=== PATIENT | male | born 1955 | race Caucasian/White ===

== ENCOUNTER 2024-04-18 06:22 | Inpatient (IN) | payer BC, OTHER ==
[~2024-04-18] VITALS: Ht 172.7 cm; Wt 102.5 kg
[~2024-04-18 06:22] MED LIST: FURO20TA3 PO; MET25T PO; TAMS0.4C39 PO
--- NOTE | 2024-04-18 07:09 | ECG ---
[facility] Test Date: 2024-04-18 Test Time: 06:39:51 Pat Name: CONCHA MENDOSA Department: ER Room: 0270T Gender: M Roofer [place]: : 1955 Requested By: JOSE CHRISTIANSON Order Number: [id number] Reading MD: Ottoniel Alfredo Measurements Intervals O'Brien Rate: 101 P: 53 DE: 152 QRS: 102 QRSD: 99 T: 29 QT: 339 QTc: 440 Interpretive Statements Sinus tachycardia Ventricular trigeminy Right axis deviation Low voltage, extremity leads Electronically Signed On 04-21-2024 16:29:49 PST by Ottoniel Alfredo Please click the below link to view image of tracing.
[2024-04-18 07:15] VITALS: PULSE 98; RESP 20; O2SAT 96
--- NOTE | 2024-04-18 09:17 | ED.PDOC ---
History of Present Illness HPI Comments 69 year old male transferred from [facility] by EMS presents to the ED with a chief complaint of generalized weakness onset yesterday. Per EMS, patient was transferred due to sepsis and Nstemi. Upon ED arrival HR was 82, O2 sat 98% RA, BP 132/88. PMHx prostatitis, COPD, coronaropathy. Denies chest pain, shortness of breath, headache, abdominal pain, nausea, vomiting, diarrhea. No other symptoms or modifying factors present at this time. Chief Complaint: General Weakness Time Seen by MD: 08:45 Reviewed Notes: Medications, Allergies Allergies: Coded Allergies: NO KNOWN ALLERGIES (Unverified , 04/18/24) Information Source: Patient, Emergency Med Personnel Mode of Arrival: EMS Severity: Moderate Timing: Hours Duration: Since onset Prehospital treatment: None Past Medical History PAST MEDICAL HISTORY: COPD Past Medical History (Other): Prostatitis, coronaropathy Surgical History: Denies all surgeries Family History Family History: Reviewed,noncontributory to illness, No family hx of Cancer, No family hx of DM, No family hx of Heart johnny, No family hx of HTN, No family hx ofKidney johnny, No family hx of Liver johnny, No family hx of Lung johnny, No family hx of Stroke Social History Smoker: Non-Smoker Alcohol: Denies ETOH Use Drugs: Denies Drug Use Lives In: Home Constitutional: reports: weakness; denies: chills, diaphoresis, fatigue, fever, malaise, sweats, others EENTM: denies: blurred vision, double vision, ear bleeding, ear discharge, ear drainage, ear pain, ear ringing, eye pain, eye redness, hearing loss, mouth pain, mouth swelling, nasal discharge, nose bleeding, nose congestion, nose pain, photophobia, tearing, throat pain, throat swelling, voice changes, others Respiratory: denies: cough, hemoptysis, orthopnea, SOB at rest, shortness of breath, SOB with excertion, stridor, wheezing, others Cardiovascular: denies: chest pain, dizzy spells, diaphoresis, Dyspnea on exertion, edema, irregular heart beat, left arm pain, lightheadedness, palpitations, PND, syncope, others Gastrointestinal: denies: abdomen distended, abdominal pain, blood streaked bowels, constipated, diarrhea, dysphagia, difficulty swallowing, hematemesis, melena, nausea, poor appetite, poor fluid intake, rectal bleeding, rectal pain, vomiting, others Genitourinary: denies: burning, dysuria, flank pain, frequency, hematuria, incontinence, penile discharge, penile sore, pain, testicle pain, testicle swelling, urgency, others Neurological: reports: weakness; denies: dizziness, fainting, headache, left sided numbness, left sided weakness, numbness, paresthesia, pre-existing deficit, right sided numbness, right sided weakness, seizure, speech problems, tingling, tremors, others Musculoskeletal: denies: back pain, gout, joint pain, joint swelling, muscle pain, muscle stiffness, neck pain, others Integumetry: denies: bruises, change in color, change in hair/nails, dryness, laceration, lesions, lumps, rash, wounds, others Allergic/Immunocompromised: denies: Difficulty Healing, Frequent Infections, Hives, Itching, others Hematologic/Lymphatic: denies: anemia, blood clots, easy bleeding, easy bruising, swollen glands, others Endocrine: denies: excessive hunger, excessive sweating, excessive thirst, excessive urination, flushing, intolerance to cold, intolerance to heat, unexplained weight gain, unexplained weight loss, others Psychiatric: denies: anxiety, bipolar disorder, depression, hopeless, panic disorder, schizophrenia, sleepless, suicidal, others All Other Systems: Reviewed and Negative Physical Exam General Appearance: Mild Distress, Other (THE PATIENT IS LETHARGIC) HEENT: Other (NO FACIAL ASYMMETRY) Neck: Full Range of Motion, Non-Tender, Normal, Normal Inspection Respiratory: Chest Non-Tender, Crackles, Decreased Breath Sounds, Expiration, Inspiration Cardiovascular: No Edema, No JVD, No Murmur, No Gallop, Normal Peripheral Pulses, Regular Rate/Rhythm Breast Exam: Deferred Gastrointestinal: No Organomegaly, Non Tender, No Pulsatile Mass, Normal Bowel Sounds, Soft Genitalia: Deferred Pelvic: Deferred Rectal: Deferred Extremities: Decreased range of motion, Inflammation, Leg edema, Pedal edema, Swelling, Tender, Other (VENOUS STASIS DERMATITIS TO BOTH LEGS THE RIGHT LEG HAS ALSO CELLULITIS ALSO THE THE TOES HAVE SOME SIGNS OF GANGRENOUS ACTIVITY) Neurologic: Alert, Depressed Affect, Motor Weakness Cerebellar Function: NOT DONE Reflexes: NOT DONE Skin: Bruises, Dry, Wounds Peripheral Pulses: 1+ carotid (R), 1+ carotid (L) Lymphatic: No Adenopathy Was a procedure done? Was a procedure done?: No EKG EKG : Pulse Rate (adult): 110 [place]: RAD Cardiac Rhythm: ST, PVC's Differential Dx Considerations may include: ALTERED LEVEL OF CONSCIOUSNESS WITH CEREBRAL MASS INFARCTION SEPSIS UTI CE LLULITIS GENERALIZED WEAKNESS PULMONARY EMBOLUS COPD PNEUMONIA RHABDOMYOLYSIS LIVER FAILURE RENAL FAILURE PANCREATITIS X-Ray, Labs, Meds, VS Vital Signs Date Time Temp Pulse Resp B/P (MAP) Pulse Ox O2 Delivery O2 Flow Rate FiO2 04/18/24 16:00 85 04/18/24 15:33 110 04/18/24 14:30 87 19 125/81 (96) 96 04/18/24 12:00 96 04/18/24 12:00 102 22 110/61 (77) 97 04/18/24 09:30 97 22 117/78 (91) 97 04/18/24 08:30 97 22 117/58 (77) 97 04/18/24 08:00 101 04/18/24 07:15 98 20 96 Nasal Cannula* 3 32 04/18/24 07:15 100.0 98 20 117/58 (77) 96 100.0 04/18/24 06:39 101 04/18/24 06:22 98.9 82 16 132/88 (103) 98 Lab Test 04/18/24 16:20 04/18/24 14:54 Range/Units Influenza Type A Antigen Negative Negative Influenza Type B Antigen Negative Negative SARS-CoV-2 Antigen (Rapid) Negative NEGATIVE White Blood Count 14.0 H 4.4-10.8 10^3/uL Red Blood Count 3.69 L 4.5-5.90 10^6/uL Hemoglobin 11.2 L 13.5-17.5 g/dL Hematocrit 34.3 L 41.0-53.0 % Mean Corpuscular Volume 92.8 80.0-100.0 fL Mean Corpuscular Hemoglobin 30.3 28.0-32.0 pg Mean Corpuscular Hemoglobin Concent 32.7 32.0-36.0 g/dL Red Cell Distribution Width 17.2 H 11.8-14.3 % Platelet Count 279 140-450 10^3/uL Mean Platelet Volume 7.2 6.9-10.8 fL Neutrophils (%) (Auto) 91.9 H 37.0-80.0 % Lymphocytes (%) (Auto) 2.6 L 10.0-50.0 % Monocytes (%) (Auto) 5.2 0.0-12.0 % Eosinophils (%) (Auto) 0.0 0.0-7.0 % Basophils (%) (Auto) 0.3 0.0-2.0 % Neutrophils # (Auto) 12.8 H 1.6-8.6 10 ^3/uL Lymphocytes # (Auto) 0.4 0.4-5.4 10 ^3/uL Monocytes # (Auto) 0.7 0-1.3 10 ^3/uL Eosinophils # (Auto) 0 0-0.8 10 ^3/uL Basophils # (Auto) 0 0-0.2 10 ^3/uL Nucleated Red Blood Cells 0.0 % Sodium Level 137 136-145 mmol/L Potassium Level 4.4 3.5-5.1 mmol/L Chloride Level 107 98-107 mmol/L Carbon Dioxide Level 25 20-31 mmol/L Anion Gap 5 5-15 Blood Urea Nitrogen 29 H 9-23 mg/dL Creatinine 1.07 0.700-1.30 mg/dL Glomerular Filtration Rate Calc 75 >90 mL/min BUN/Creatinine Ratio 27.1 H 10.0-20.0 Serum Glucose 99 74-106 mg/dL Hemoglobin A1c Pending Calcium Level 8.5 L 8.7-10.4 mg/dL Magnesium Level 1.7 1.6-2.6 mg/dL Total Bilirubin 0.3 0.2-1.0 mg/dL Aspartate Amino Transferase (AST) 84 H 13-40 U/L Alanine Aminotransferase (ALT) 26 7-40 U/L Alkaline Phosphatase 117 H 46-116 U/L Troponin I High Sensitivity 1563 *H </=54 ng/L B-Type Natriuretic Peptide 555.48 0-100 pg/mL Total Protein 5.3 L 5.7-8.2 g/dL Albumin 3.0 L 3.2-4.8 g/dL Triglycerides Level 107 < 150 mg/dL Cholesterol Level 129 < 200 mg/dL LDL Cholesterol 65 < 100 mg/dL HDL Cholesterol 36 L 40-59 mg/dL Thyroid Stimulating Hormone (TSH) 0.46 L 0.55-4.78 uIU/mL Current Medications Medications (Trade) Dose Ordered Sig/Shashank Route Start Time Stop Time Status Last Admin Enoxaparin Sodium (Lovenox) 60 mg ONCE ONCE SC 04/18/24 15:45 04/18/24 15:46 DC 04/18/24 16:01 Aspirin 162 mg ONCE ONCE PO 04/18/24 15:45 04/18/24 15:46 DC 04/18/24 16:01 X-Ray, Labs, Meds, VS Comment COURSE IN THE EMERGENCY DEPARTMENT EVENTFUL PATIENT HAD A FULL WORKUP AT [facility] TO BE REFERRED TO THE COMPLETE LAB WORKUP INCLUDED EKG THE CHEST X-RAY CT CHEST CT ANGIO PATIENT WILL BE ADMITTED FOR FURTHER CARE HE WAS ALREADY TREATED FOR SEPSIS AND UTI THE PULMONARY EMBOLUS MORE WAS RULED OUT PATIENT WILL BE ADMITTED FOR FURTHER CARE CONSULTATION WITH ELEVATOR [employer]STRUCTOR SUPERVISOR PATIENT WILL BE ADMITTED UNDER DR. VELAZQUEZ SERVICE SPEND 30-45 MINUTES REVIEWING THE CHART AND SEEN THE PATIENT Time of 1ST Reevaluation: 09:15 Reevaluation 1ST: Unchanged Time of 2ND Reevaluation: 15:16 Reevaluation 2ND: Improved Patient Education/Counseling: Diagnosis, Treatment, Prognosis Family Education/Counseling: Diagnosis, Treatment, Prognosis, No Family Present Additional Information The following tests were ordered, and results were reviewed by me: EKG -x2, CBC, CMP, UA, MAGNESIUM Additional Information was gathered from interviewing the following independent historians: EMS I discussed treatment and results with medical personnel and patient Departure 1 Departure Time of Disposition: 15:19 Impression: Primary Impression: Sepsis Qualified Codes: A41.9 - Sepsis, unspecified organism Additional Impressions: Lethargy Cellulitis of right leg Elevated troponin Multiple falls COPD (chronic obstructive pulmonary disease) Qualified Codes: J43.2 - Centrilobular emphysema Rhabdomyolysis Qualified Codes: M62.82 - Rhabdomyolysis Marijuana user Methamphetamine abuse Non-STEMI (non-ST elevated myocardial infarction) Ruled Out: Pulmonary embolism Disposition: ADMITTED INPATIENT Admit to: [facility] Condition: Critical Critical Care Note Critical Care Time?: Yes (45 min-critical care time only) Stability Stability form required: Yes Unstable for transfer: Telemetry monitoring (Telemetry monitoring required), Requires medication (Requires Med for stabilization) Heart Score Heart Score: Heart Score Response (Comments) Value History Moderate Suspicious 1 EKG Repolarization Disturb 1 Age >65 2 Risk Factors >3 or Hx ASHD 2 Troponin >3 x's Normal limit 2 Total 8 I personally scribed for JOSE CHRISTIANSON MD ([email or web address]) on 04/18/24 at 09:17. Electronically submitted by Marla Jones ([email or web address]). I personally scribed for JOSE CHRISTIANSON MD ([email or web address]) on 04/18/24 at 15:34. Electronically submitted by Marla Jones [email or web address]). JOSE CHRISTIANSON MD Apr 18, 2024 09:17
[2024-04-18] MEDS: SODIUM CHLORIDE 0.9% 500 ML IV ONE (15:01)
[2024-04-18] MEDS: SODIUM CHLORIDE 0.9% 1,000 ML IV ONE ×2 (15:02→15:48)
[2024-04-18 15:07] LABS: Basophils # (auto) 0 10 ^3/uL (0-0.2); Basophils % (auto) 0.3 % (0.0-2.0); Eosinophils # (auto) 0 10 ^3/uL (0-0.8); Hematocrit 34.3 % (41.0-53.0); Hemoglobin 11.2 g/dL (13.5-17.5); Lymphocytes # (auto) 0.4 10 ^3/uL (0.4-5.4); Lymphocytes % (auto) 2.6 % (10.0-50.0); Mean Corpuscular Hemoglobin 30.3 pg (28.0-32.0); Mean Corpuscular Hgb Conc. 32.7 g/dL (32.0-36.0); Mean Corpuscular Volume 92.8 fL (80.0-100.0); Monocytes # (auto) 0.7 10 ^3/uL (0-1.3); Monocytes % (auto) 5.2 % (0.0-12.0); Neutrophils # (auto) 12.8 10 ^3/uL (1.6-8.6); Neutrophils % (auto) 91.9 % (37.0-80.0); Platelet Count (auto) 279 10^3/uL (140-450); Red Blood Cells 3.69 10^6/uL (4.5-5.90); Red Cell Distribution Width 17.2 % (11.8-14.3)
[2024-04-18 15:22] LABS: Alanine Aminotransferase 26 U/L (7-40); Anion Gap 5 (5-15); BUN/Creatinine Ratio 27.1 (10.0-20.0); Bilirubin, Total 0.3 mg/dL (0.2-1.0); Carbon Dioxide 25 mmol/L (20-31); Chloride 107 mmol/L (98-107); Glucose 99 mg/dL (74-106); Magnesium 1.7 mg/dL (1.6-2.6); Potassium 4.4 mmol/L (3.5-5.1); Sodium 137 mmol/L (136-145)
[2024-04-18 15:24] LABS: Alkaline Phosphatase 117 U/L (46-116); Aspartate Aminotransferase 84 U/L (13-40); Blood Urea Nitrogen 29 mg/dL (9-23); Calcium 8.5 mg/dL (8.7-10.4); Total Protein 5.3 g/dL (5.7-8.2)
[2024-04-18] MEDS: SODIUM CHLORIDE 0.9% 1,000 ML IVB ONE (15:48)
[2024-04-18] MEDS: ASPirin 81 mg TAB PO ONE (16:01)
[2024-04-18] MEDS: ENOXAPARIN SOD 100 MG/1 ML SYRINGE SC ONE (16:01)
[2024-04-18 16:57] LABS: Triglycerides 107 mg/dL (< 150)
[2024-04-18 16:58] LABS: LDL Cholesterol 65 mg/dL (< 100)
[2024-04-18 16:59] LABS: Cholesterol 129 mg/dL (< 200)
[2024-04-18] MEDS ORDERED: VANCOMYCIN PER PHARMACY 0 MG IV SCH (17:00)
[2024-04-18] MEDS ORDERED: MORPHINE SULFATE INJ 2 MG/ml SYRG IV PRN (17:00)
[2024-04-18] MEDS: SODIUM CHLORIDE 0.9% 1,000 ML IV SCH (17:00)
[2024-04-18] MEDS ORDERED: NITROGLYCERIN 0.4 MG SL TAB SL PRN (17:00)
[2024-04-18 17:16] LABS: Rapid Influenza A Negative (Negative); Rapid Influenza B Negative (Negative)
[2024-04-18 17:17] LABS: COVID19 ANTIGEN SOFIA FIA NEGATIVE (NEGATIVE)
[2024-04-18 17:18] LABS: HDL Cholesterol 36 mg/dL (40-59)
--- NOTE | 2024-04-18 17:34 | DVH ---
AP portable chest REASON FOR EXAM: Cough with phlegm INDICATION: Cough with phlegm FINDINGS: Heart size is enlarged. Prominent bronchovascular markings in both lower lung zones, right greater than left IMPRESSION: 1. Cardiomegaly. Lung findings could either represent mild pulmonary edema or bibasilar infiltrates
[2024-04-18] MEDS: MAGNESIUM SULFATE 1GM/100ML 100 ML IV ONE (18:11)
[2024-04-18] MEDS: PIPERACILLIN-TAZOB 3.375GM 100 ML IV SCH (18:11)
[2024-04-18 18:23] LABS: Basophils # (auto) 0.1 10 ^3/uL (0-0.2); Basophils % (auto) 0.4 % (0.0-2.0); Eosinophils # (auto) 0 10 ^3/uL (0-0.8); Hemoglobin 10.4 g/dL (13.5-17.5); Lymphocytes # (auto) 0.4 10 ^3/uL (0.4-5.4); Lymphocytes % (auto) 2.6 % (10.0-50.0); Mean Corpuscular Hemoglobin 30.3 pg (28.0-32.0); Mean Corpuscular Hgb Conc. 32.7 g/dL (32.0-36.0); Mean Corpuscular Volume 92.5 fL (80.0-100.0); Monocytes # (auto) 0.6 10 ^3/uL (0-1.3); Monocytes % (auto) 4.7 % (0.0-12.0); Neutrophils # (auto) 12.7 10 ^3/uL (1.6-8.6); Neutrophils % (auto) 92.3 % (37.0-80.0); Platelet Count (auto) 263 10^3/uL (140-450); Red Blood Cells 3.45 10^6/uL (4.5-5.90); Red Cell Distribution Width 17.4 % (11.8-14.3); White Blood Cell 13.7 10^3/uL (4.4-10.8)
[2024-04-18] MEDS: HYDROcodone-ACET 5/325MG TAB PO PRN (18:28)
[2024-04-18 18:38] LABS: Urine Bacteria None Seen /hpf (None Seen)
[2024-04-18 19:00] VITALS: PULSE 89; RESP 20
--- NOTE | 2024-04-18 19:12 | DVHSR ---
APPROVED REPORT EXAM: Two-dimensional and M-mode echocardiogram with Doppler and color Doppler. Blood Pressure: 110/61 mmHg INDICATION NSTEMI RISK FACTORS Height: 5'8", Weight: 209 DIMENSIONS LVDd4.6 (3.8-5.7cm)LA (2D)5.2 (1.9-4.0cm)Aortic Root4.1 (2.0-3.7cm) LVDs2.9 (2.5-4.0cm)LA (MM) (1.9-4.0cm)Aortic Cusp Exc1.8 (1.5-2.0cm) EF (%) 66.0 (55-70%)Rt. Atrium5.9 (1.9-4.0cm)Asc. Aorta cm IVSd1.2 (0.7-1.1cm)RV (D)6.3 (1.8-2.4cm) PWd1.2 (0.7-1.1cm) Mitral Valve MitralMitral Stenosis E wave0.96m/sMV Mean GR.mmHg A wave1.00m/sMV Peak GR.mmHg E/A ratio1.02D MVAcm2 DECEL [id number] 1/2 Timems Aortic Valve Aortic ValveAortic Stenosis V11.02m/Mitchel Mean GR.3mmHg V21.28m/Mitchel Peak GR.7mmHg LVOT Diameter2.3 (1.8-2.4cm)Doppler AVA3.31cm2 Pulmonic Valve V20.87m/s Tricuspid Valve TR Velocity3.43m/s [id number] LEFT VENTRICLE The left ventricle is normal size. There is mildconcentric left ventricular hypertrophy. Left ventricle systolic function is normal. The Ejection Fraction is 60-65%. Flattening of the interventricular septum during systole suggestive of right sided pressure overload. RIGHT VENTRICLE The right ventricle is severely dilated. The right ventricular systolic function is normal. ATRIA The left atrium is moderately dilated. The right atrium is severely dilated. Not well visualized. MITRAL VALVE The mitral valve is normal in structure and function. PULMONIC VALVE Likely normal. TRICUSPID VALVE The tricuspid valve is normal in structure and function. There is mild tricuspid regurgitation. Right ventricular systolic pressure is estimated at 55-60 mmHg. AORTIC VALVE Normal structure and function. GREAT VESSELS Aortic root measures 4.1 cm at level of sinuses of valsalva. PERICARDIAL EFFUSION No significant pericardial effusion. IVC not visualized. Other Information Quality : LimitedRhythm : Technically limited study due to body habitus, patient position. Conclusion Severely dilated right ventricle with preserved systolic funciton. The left ventricle is normal size and systolic function. Flattening of the interventricular septum during systole suggestive of right sided pressure overload. Severely dilated right atrium. Right ventricular systolic pressure is estimated at 55-60 mmHg. Mild left ventricular hypertrophy. No hemodynamically significant valvular disease. No prior study for comparison.
[2024-04-18 19:13] LABS: Urine Blood 3+ /uL (Negative); Urine Clarity Ex.Turbid (Clear); Urine Color Colorless (Yellow); Urine Protein, UAD 1+ (Negative); Urine Specific Gravity 1.034 (1.001-1.035); Urine Squamous Epithelial Cell None Seen /hpf (<5); Urine Urobilinogen Normal (Negative); Urine WBC 2485 /hpf (0 - 3); Urine WBC Clumps PRESENT /hpf (None Seen)
--- NOTE | 2024-04-18 19:23 | DVHINCON2 ---
Date Seen: Apr 18, [address] Nix Reason for Consultation Non ST-elevation NM History of Present Illness 69-year-old gentleman who lives alone was referred to the hospital by his neighbor who found him somewhat confused and mentally altered. He went to [facility]. Given troponin elevation with a history of edema of the lower extremities he was transferred to [facility] for further evaluation and treatment. He was found to have significant generalized weakness. Possible sepsis. Patient is better oriented but still somewhat disoriented. Past Medical History His past medical history significant for prostatitis chronic obstructive lung disease. He states he was previously being followed by for his cardiac problems. He can not specify what problem he has had however. He denies any chest pain but he admits to being significantly weak and progressivel y short of breath. He has had swelling in his lower extremities. He was told that this may be symptoms of congestive heart failure. No previous surgeries. Past Surgical History No previous surgeries. Social History He states he does not drink or smoke. He is single. Has a daughter that he has not seen in over 50 years. He has a brother and nephew who is. He lives alone Allergies: Coded Allergies: NO KNOWN ALLERGIES (Unverified , 04/18/24) Current Medications Current Medications Medications (Trade) Dose Ordered Sig/Shashank Route PRN Reason Start Time Stop Time Status Last Admin Sodium Chloride 1,000 ml @ 120 mls/hr Q8H20M IV 04/18/24 17:00 Acetaminophen/ Hydrocodone Bitart ([place] 5/325MG Tab) 1 tab Q4HP PRN PO MODERATE PAIN (4-6 PAIN SCALE) 04/18/24 17:00 04/18/24 18:28 Ondansetron HCl (Zofran) 4 mg Q4HP PRN IV NAUSEA / VOMITING 04/18/24 17:00 Acetaminophen (Tylenol Tablet) 650 mg Q6HP PRN PO PAIN SCALE 1-3 OR TEMP>100.4 04/18/24 17:00 Morphine Sulfate 2 mg Q4HPRN PRN IV SEVERE PAIN (7-10 PAIN SCALE) 04/18/24 17:00 Nitroglycerin (Ntrostat Sublingual) 0.4 mg Q5MINP PRN SL FOR CHEST PAIN 04/18/24 17:00 Morphine Sulfate 2 mg Q30M PRN IV FOR CHEST PAIN 04/18/24 17:00 Vancomycin HCl 0 ml @ 0 mls/hr UD IV 04/18/24 17:00 Piperacillin Sod/ Tazobactam Sod 100 ml @ 25 mls/hr Q8H IV 04/18/24 18:00 04/18/24 18:11 Heparin Sodium/ Dextrose 250 ml @ 10 mls/hr Q24H IV 04/19/24 02:00 Review of Systems Review of systems is difficult to obtained. He denies any fevers chills or weight loss. Denies any cardiac respiratory or neurologic impairment. Denies any GI or musculoskeletal disorders other than edema of his lower extremities and progressive weakness. Hematological oncological endocrinologic negative. Psychiatrically negative. Vital Signs Vital Signs Date Time Temp Pulse Resp B/P (MAP) Pulse Ox O2 Delivery O2 Flow Rate FiO2 04/18/24 18:00 87 13 106/53 (70) 87 04/18/24 07:15 Nasal Cannula* 3 32 04/18/24 07:15 100.0 100.0 Physical Exam Patient is lying in bed. Vital signs are noted. He appears unkept but responds to questions. HEENT examination reveals an atraumatic and normocephalic skull. Pupils were equally reactive orally poorly hydrated. Trachea central neck is supple. No jugular distention no bruits. Coarse rhonchi bilaterally. Heart exam reveals an irregular S1-S2. Frequent heart sounds notable secondary to PVCs. 1/6 systolic ejection murmur. Abdominal examination is unremarkable. Bowel sounds are normoactive. Extremities show adequate pulses at the femorals. Popliteals are present. Dorsalis pedis and pedal are not palpable. Notable edema and [id number] cellulitis in his distal tibial and ankles bilaterally. There appears to be more cellulitis on the right. Neurologically he appears to be nonfocal. Integumentary as noted above with cellulitis in his distal extremities. Labs/Diagnostic Data Labs Test 04/18/24 18:00 04/18/24 17:30 04/18/24 16:20 04/18/24 14:54 Range/Units Influenza Type A Antigen Negative Negative Influenza Type B Antigen Negative Negative SARS-CoV-2 Antigen (Rapid) Negative NEGATIVE Eosinophils (%) (Auto) 0.0 0.0-7.0 % Eosinophils # (Auto) 0 0-0.8 10 ^3/uL Basophils # (Auto) 0 0-0.2 10 ^3/uL Nucleated Red Blood Cells 0.0 % Sodium Level 137 136-145 mmol/L Potassium Level 4.4 3.5-5.1 mmol/L Chloride Level 107 98-107 mmol/L Carbon Dioxide Level 25 20-31 mmol/L Anion Gap 5 5-15 Blood Urea Nitrogen 29 H 9-23 mg/dL Creatinine 1.07 0.700-1.30 mg/dL Glomerular Filtration Rate Calc 75 >90 mL/min BUN/Creatinine Ratio 27.1 H 10.0-20.0 Serum Glucose 99 74-106 mg/dL Hemoglobin A1c 5.7 <5.7 % A1C Calcium Level 8.5 L 8.7-10.4 mg/dL Magnesium Level 1.7 1.6-2.6 mg/dL Total Bilirubin 0.3 0.2-1.0 mg/dL Aspartate Amino Transferase (AST) 84 H 13-40 U/L Alanine Aminotransferase (ALT) 26 7-40 U/L Alkaline Phosphatase 117 H 46-116 U/L Troponin I High Sensitivity 1563 *H </=54 ng/L B-Type Natriuretic Peptide 555.48 0-100 pg/mL Total Protein 5.3 L 5.7-8.2 g/dL Albumin 3.0 L 3.2-4.8 g/dL Triglycerides Level 107 < 150 mg/dL Cholesterol Level 129 < 200 mg/dL LDL Cholesterol 65 < 100 mg/dL HDL Cholesterol 36 L 40-59 mg/dL Thyroid Stimulating Hormone (TSH) 0.46 L 0.55-4.78 uIU/mL EKG shows a sinus rhythm with nonspecific ST segment changes. EKG is reviewed from [facility] show nonspecific changes. No acute injury pattern noted Preliminary echocardiographic findings suggest normal left ventricular function. Enlarged left atrium. No significant valvulopathy noted. Ejection fraction appears to be better than 55%. The right ventricle appears to be mildly dilated. Assessment Elevated white count probably secondary to cellulitis. Rule out vascular insufficiency of the lower extremities. Associated elevated troponins suggest demand ischemia given unremarkable EKG. History of hypertension. Plan/Recommendation Continuing with IV antibiotics. Slow hydration as necessary. Venous and arterial Doppler of the lower extremities. Monitor troponins and BNP levels as well as lactic acid levels. Serial EKGs and troponin levels as mentioned. Plan discussed with: Patient NYHA Physical activity limitations: Class4(Severe)discomfort Date of Service: Apr 18, 2024 Billing Provider: MIRANDA OLVERA Sr., MD Cardiology Common Codes: 06604-[id number] INP/OBS CARE (High) MIRANDA OLVERA Sr., MD Apr 18, 2024 19:23
--- NOTE | 2024-04-18 19:50 | DVHHP2 ---
Admitting Diagnosis: NSTEMI, Sepsis , bilateral lower extremity cellulitis, UTI History of Present Illness History Source: Patient Exam Limitations: No limitations HPI Mr. Julius Doshi is a 69 year old male transferred from [facility] by EMS presents with a chief complaint of generalized weakness onset yesterday. Patient was transferred due to sepsis and Nstemi. Patient reports he was found unresponsive by his neighbor who called 911 and he was found to have elevated troponin levels at [facility] and cellulitis of bilateral lower extremities. Patient denies any chest pain, dizziness, headaches, blurry vision, nausea, vomiting, dyspnea, dysuria, hematuria. Patient endorses bilateral lower extremity pain. Patient admitted for further evaluation. Past Medical History Cardiac: No pertinent Hx Pulmonary: COPD Central Nervous System: No pertinent Hx GI: No pertinent Hx Hemotology/Oncology: No pertinent Hx Hepatobiliary: No pertinent Hx Psychiatric: No pertinent Hx Musculoskeletal: No pertinent Hx Rheumotologic: No pertinent Hx Infectious Disease: No peritnent Hx ENT: No pertinent Hx Renal/: Other (Prostatis ) Endocrine: No pertinent Hx Dermatology: No pertinent Hx Smoker: No Hx (Negative) Alocohol: None Drugs: None Domestic Violence: Neg Review of Systems Constitutional: No symptom reported Ears, Nose, & Throat: No symptom reported Eyes: No symptom reported Pulmonary/Respiratory: No symptom reported Cardiovascular: No symptom reported Gastrointestinal: No symptom reported Genitourinary: No symptom reported Musculoskeletal: Leg pain (bilateral lower extremity swelling and pain. ) Skin: No symptom reported Psychiatric: No symptom reported Endocrine: No symptom reported Hemotologic/Lymphatic: No symptom reported H&P Exam Vital Signs Vital Signs Date Time Temp Pulse Resp B/P (MAP) Pulse Ox O2 Delivery O2 Flow Rate FiO2 04/18/24 18:00 87 13 106/53 (70) 87 04/18/24 07:15 Nasal Cannula* 3 32 04/18/24 07:15 100.0 100.0 General Appeara: Well developed, Well nourished Head Exam: Normal inspection Neck Exam: Normal inspection, Non-tender, Normal alignment Eye Exam: bilateral eye Normal inspection, bilateral eye PERRL, bilateral eye EOMI Ear Exam: bilateral ear Auricle normal, bilateral ear Canal normal Nasal Exam: Normal inspection Mouth: Normal Inspection Pulmonary/Respiratory: Normal inspection, Normal breath sounds, Chest non- tender Cardiovascular/Chest: Normal inspection, Edema (bilateral lower extremity), Regular rate, Normal Rhythm Peripheral Pulses: 2+ dorsalis pedis (R), 2+ dorsalis pedis (L), 2+ Radial (R), 2+ Radial (L) Abdominal Exam: Normal bowel sounds, Soft, No tenderness Rectal Exam: Deferred Male Genital Exam: Not done Legs: bilateral leg pain, bilateral leg soft tissue tenderness, bilateral leg swelling Tendon/ Neuro: Normal sensation, Normal motor function MANAGER SPEECH Exam: Normal hearing, Normal speech, PERRL Motor/Sensory: Normal sensory function, Normal motor function Neuro/Mental St: Alert, Oriented Appearance: Appropriate insight, Disheveled Eye contact/ Speech: Cooperative, Good eye contact, Normal speech Thoughts/Psych: Normal thought pattern Skin Exam: Normal inspection, Warm/dry, Other (bilateral lower extremity erythema with scabs ) Labs/Xrays Labs Test 04/18/24 18:00 04/18/24 17:30 04/18/24 16:20 04/18/24 14:54 Range/Units Urine Color Colorless Yellow Urine Clarity Ex.turbid Clear Urine pH 6.0 5.0-9.0 Urine Specific [place] 1.034 1.001-1.035 Urine Protein 1+ H Negative Urine Ketones Negative Negative Urine Blood 3+ H Negative /uL Urine Nitrite Negative Negative Urine Bilirubin Negative Negative Urine Urobilinogen Normal Negative mg/dL Urine Leukocyte Esterase 3+ Negative /uL Urine RBC 35 0 - 3 /hpf Urine WBC 2485 0 - 3 /hpf Urine WBC Clumps Present None Seen /hpf Urine Squamous Epithelial Cells None seen <5 /hpf Urine Bacteria None seen None Seen /hpf Urine Glucose Normal Normal mg/dL White Blood Count 13.7 H 4.4-10.8 10^3/uL Red Blood Count 3.45 L 4.5-5.90 10^6/uL Hemoglobin 10.4 L 13.5-17.5 g/dL Hematocrit 32.0 L 41.0-53.0 % Mean Corpuscular Volume 92.5 80.0-100.0 fL Mean Corpuscular Hemoglobin 30.3 28.0-32.0 pg Mean Corpuscular Hemoglobin Concent 32.7 32.0-36.0 g/dL Red Cell Distribution Width 17.4 H 11.8-14.3 % Platelet Count 263 140-450 10^3/uL Mean Platelet Volume 7.4 6.9-10.8 fL Neutrophils (%) (Auto) 92.3 H 37.0-80.0 % Lymphocytes (%) (Auto) 2.6 L 10.0-50.0 % Monocytes (%) (Auto) 4.7 0.0-12.0 % Eosinophils (%) (Auto) 0.0 0.0-7.0 % Basophils (%) (Auto) 0.4 0.0-2.0 % Neutrophils # (Auto) 12.7 H 1.6-8.6 10 ^3/uL Lymphocytes # (Auto) 0.4 0.4-5.4 10 ^3/uL Monocytes # (Auto) 0.6 0-1.3 10 ^3/uL Eosinophils # (Auto) 0 0-0.8 10 ^3/uL Basophils # (Auto) 0.1 0-0.2 10 ^3/uL Nucleated Red Blood Cells 0.0 % Influenza Type A Antigen Negative Negative Influenza Type B Antigen Negative Negative SARS-CoV-2 Antigen (Rapid) Negative NEGATIVE Sodium Level 137 136-145 mmol/L Potassium Level 4.4 3.5-5.1 mmol/L Chloride Level 107 98-107 mmol/L Carbon Dioxide Level 25 20-31 mmol/L Anion Gap 5 5-15 Blood Urea Nitrogen 29 H 9-23 mg/dL Creatinine 1.07 0.700-1.30 mg/dL Glomerular Filtration Rate Calc 75 >90 mL/min BUN/Creatinine Ratio 27.1 H 10.0-20.0 Serum Glucose 99 74-106 mg/dL Hemoglobin A1c 5.7 <5.7 % A1C Calcium Level 8.5 L 8.7-10.4 mg/dL Magnesium Level 1.7 1.6-2.6 mg/dL Total Bilirubin 0.3 0.2-1.0 mg/dL Aspartate Amino Transferase (AST) 84 H 13-40 U/L Alanine Aminotransferase (ALT) 26 7-40 U/L Alkaline Phosphatase 117 H 46-116 U/L Troponin I High Sensitivity 1563 *H </=54 ng/L B-Type Natriuretic Peptide 555.48 0-100 pg/mL Total Protein 5.3 L 5.7-8.2 g/dL Albumin 3.0 L 3.2-4.8 g/dL Triglycerides Level 107 < 150 mg/dL Cholesterol Level 129 < 200 mg/dL LDL Cholesterol 65 < 100 mg/dL HDL Cholesterol 36 L 40-59 mg/dL Thyroid Stimulating Hormone (TSH) 0.46 L 0.55-4.78 uIU/mL Assessment/Plan Problem List: (1) Non-STEMI (non-ST elevated myocardial infarction) (2) Sepsis (3) UTI (urinary tract infection) (4) Cellulitis Plan 69 yo male transfer from [facility] with known history of Prostatitis , COPD presents with NSTEMI, sepsis. 1. NSTEMI 2. Sepsis 3. Bilateral lower extremity cellulitis 4. UTI Plan Admit [facility] Cardiology consultation, serial troponin levels, Heparin drip per [facility] protocol Infectious disease consultation, IV antibiotics Zosyn, Vancomycin Blood cultures x2 Urine culture Discussed all above with patient who verbalizes agreement and understanding of care plan. All questions were answered. Discussed care plan with patient nurse Mati ALANIS. Discussed assessment and care plan with supervising/admitting MD Dr. Velazquez. Plan discussed with: Patient, Other Code Visit Code Visit Total Time (mins): 45 Additional Comments Additional Comments Additional Comments 69-year-old male with a known history of COPD with previous history of tobacco use disorder presented to the hospital with shortness breath found to have 1. Acute hypoxic respiratory failure 2. Acute COPD exacerbation 3. Sepsis with suspected secondary to bilateral lower extremity cellulitis 4. NSTEMI versus demand ischemia 5. Bilateral lower extremity cellulitis -continue broad-spectrum IV antibiotics follow up blood cultures, continue heparin drip follow up Cardiology recommendations ZULAY CANO Apr 18, 2024 19:50 JAM VELAZQUEZ MD Apr 19, 2024 14:51
[2024-04-18 20:21] LABS: INR 1.15 (0.9-1.15); Partial Thromboplastin Time 35.6 SEC (24.5-34.5)
[2024-04-18] MEDS: VANCOMYCIN 1.75GM/350ML 350 ML IV ONE (20:25)
[2024-04-18] MEDS: IOHEXOL 350 MG/ML 100ML IJ ONE (20:26)
[2024-04-18 21:00] VITALS: BP 104/62; PULSE 79; RESP 20; TEMP 98.8; O2SAT 98
--- NOTE | 2024-04-18 21:49 | DVH ---
INDICATION: sob COMPARISON: None TECHNIQUE: Multidetector CTA of the chest was performed of the chest with 100 cc of intravenous contr ast. PULMONARY ANGIOGRAPHY PROTOCOL was utilized using a bolus-tracking technique centered on the micah n pulmonary artery. Axial, coronal and sagittal multiplanar and MIP reformats were performed. Sagittal and coronal MIP images were reconstructed and submitted for interpretation. Radiation Dose Information: CT Dose: CTDI volume is 35.52 mGy. Dose-length product is 1199.85 mGy*cm Omnipaque 350: 100 mL The dose indicators for CT are the volume Computed Tomography (CT) Dose Index (CTDIvol) and the Dose Length Product (DLP), and are measured in units of mGy and mGy-cm, respectively. These indicators are not patient dose, but values generated from the CT scanner acquisition factors. The report includes radiation exposure data for exposures received during this examination. Findings: Pulmonary artery: Normal caliber of the pulmonary artery. No large central or large segmental pulmo nary embolism. Lower neck: Normal thyroid. Lungs: No focal consolidation, pulmonary mass, or suspicious pulmonary nodule. Heart/Vascular Structures: Normal heart size. Normal caliber and enhancement of the aorta. Lymph Nodes: No adenopathy Pleura: Small bilateral pleural effusions. No significant pneumothorax. Musculoskeletal: No acute osseous abnormality. Upper abdomen: Large hiatal hernia extending to the mayra or intrathoracic stomach or esophageal mass. Correlate clinically or with medical or surgical history.. IMPRESSION: 1. No pulmonary embolism. 2. No findings of pulmonary artery hypertension. 3. Large hiatal hernia or intrathoracic stomach. Correlate with medical and surgical history. 4. Small bilateral pleural effusions.
[2024-04-19] VITALS (9 sets, daily range): PULSE 68–86; RESP 14–28; O2SAT 94–100
[2024-04-19] MEDS: IPRATROPIUM BROM 0.5 MG/2.5ML INH SOL NEB SCH ×2 (00:55→18:51)
[2024-04-19] MEDS: ALBUTEROL SULF 2.5 MG/0.5ML(0.5%) NEB SOLN NEB PRN (00:55)
[2024-04-19] MEDS: HEPARIN DRIP/D5W 100UNITS/ML 250 ML IV SCH ×3 (02:03→16:32)
[2024-04-19] MEDS: ALBUMIN 25% 50 ML IV ONE (03:33)
--- NOTE | 2024-04-19 04:43 | DVH ---
Bilateral lower extremity venous duplex Clinical History: edema Comparison: None Findings: Duplex Doppler evaluation of the deep venous systems of both lower extremities from the common femora l veins to the popliteal veins including color Doppler and spectral/pulsed waveform analysis was perf ormed. RIGHT SIDE: The common femoral vein demonstrates appropriate compressibility and waveform variability. There is compressibility/patency of the great saphenous vein at the proximal thigh. The femoral vein demonstrates appropriate compressibility and waveform variability. The deep femoral vein demonstrates appropriate compressibility and waveform variability. The popliteal vein demonstrates appropriate compressibility and waveform variability. There is normal compressibility at the tibioperoneal trunk. LEFT SIDE: The common femoral vein demonstrates appropriate compressibility and waveform variability. There is compressibility/patency of the great saphenous vein at the proximal thigh. The femoral vein demonstrates appropriate compressibility and waveform variability. The deep femoral vein demonstrates appropriate compressibility and waveform variability. The popliteal vein demonstrates appropriate compressibility and waveform variability. There is normal compressibility at the tibioperoneal trunk. There is a lymph node measuring 3.0 cm. Impression: 1. No deep venous thrombosis in the bilateral lower extremities. 2. Prominent left groin lymph node measuring 3.0 cm.
--- NOTE | 2024-04-19 04:52 | DVH ---
BILATERAL Lower Extremity Arterial Duplex Date: 04/19/2024 12:26 AM Clinical History: pale foot Comparison: None Technique: Duplex Doppler evaluation including color Doppler and spectral/pulsed waveform analysis of the lower extremity arteries was performed. Finding: RIGHT: Peak systolic velocities are as follows: BEARING RING ASSEMBLER 87 cm/s Deep femoral 54 cm/s SFA proximal 82 cm/s SFA mid-portion 81 cm/s SFA distal 90 cm/s Popliteal 80 cm/s Posterior tibial 71 cm/s Anterior tibial not imaged Peroneal not imaged Dorsalis pedis 63 cm/s The waveforms are triphasic. LEFT: Peak systolic velocities are as follows: BEARING RING ASSEMBLER 89 cm/s Deep femoral 61 cm/s SFA proximal 82 cm/s SFA mid-portion 109 cm/s SFA distal 78 cm/s Popliteal 80 cm/s Posterior tibial 87 cm/s Anterior tibial not imaged Peroneal not imaged cm/s Dorsalis pedis 62 cm/s The waveforms are triphasic. REFERENCE VALUES, [facility]) vascular Imaging Lab Criteria: Peak systolic velocity ranges (in cm/sec) are as follows: <150 cm/s - <20 % stenosis 150-200 cm/s - 20-49% stenosis 200-300 cm/s - 50-75% stenosis >300 cm/s -> 75% stenosis IMPRESSION: 1. There is no evidence for significant arterial stenosis in the right or left lower extremity.
[2024-04-19 05:33] LABS: Basophils # (auto) 0 10 ^3/uL (0-0.2); Basophils % (auto) 0.2 % (0.0-2.0); Eosinophils # (auto) 0 10 ^3/uL (0-0.8); Eosinophils % (auto) 0.2 % (0.0-7.0); Hemoglobin 10.5 g/dL (13.5-17.5); Lymphocytes # (auto) 0.5 10 ^3/uL (0.4-5.4); Mean Corpuscular Hemoglobin 31.3 pg (28.0-32.0); Mean Corpuscular Hgb Conc. 33.8 g/dL (32.0-36.0); Mean Corpuscular Volume 92.5 fL (80.0-100.0); Monocytes # (auto) 0.5 10 ^3/uL (0-1.3); Monocytes % (auto) 4.6 % (0.0-12.0); Neutrophils # (auto) 9.6 10 ^3/uL (1.6-8.6); Platelet Count (auto) 259 10^3/uL (140-450); Red Blood Cells 3.36 10^6/uL (4.5-5.90); White Blood Cell 10.7 10^3/uL (4.4-10.8)
[2024-04-19 05:46] LABS: Alanine Aminotransferase 24 U/L (7-40); Alkaline Phosphatase 106 U/L (46-116); Anion Gap 3 (5-15); BUN/Creatinine Ratio 22.5 (10.0-20.0); Carbon Dioxide 26 mmol/L (20-31); Chloride 105 mmol/L (98-107); Glucose 153 mg/dL (74-106); Potassium 4.2 mmol/L (3.5-5.1); Sodium 134 mmol/L (136-145)
[2024-04-19 05:47] LABS: Aspartate Aminotransferase 64 U/L (13-40); Bilirubin, Total 0.3 mg/dL (0.2-1.0); Blood Urea Nitrogen 23 mg/dL (9-23); Calcium 8.6 mg/dL (8.7-10.4); Total Protein 5.4 g/dL (5.7-8.2)
[2024-04-19 06:35] LABS: INR 1.13 (0.9-1.15); Partial Thromboplastin Time 34.7 SEC (24.5-34.5); Prothrombin Time 11.8 sec (9.3-11.8)
[2024-04-19] MEDS: HEPARIN SODIUM (PORCINE) 5000 UNITS/ML 1ML VIAL IV ONE (08:46)
--- NOTE | 2024-04-19 09:11 | DVHINCON2 ---
Date of service: Apr 19, [address] Nix Reason for Consultation Sepsis History of Present Illness Patient is a 69-year-old male presents to the hospital for the complaint of generalized weakness. Patient is transferred from [facility] by EMS due to sepsis and Nstemi. Patient reports he was found unresponsive by his neighbor who called 911 and he was found to have elevated troponin levels at [facility] and cellulitis of bilateral lower extremities. Patient reports bilateral lower extremity pain. He denies any chest pain but he admits to being significantly weak and progressively short of breath. He has had swelling in his lower extremities. He was told that this may be symptoms of congestive heart failure. Patient is better oriented but still somewhat disoriented. Past Medical History Patient's Past medical history is significant for COPD, Prostatitis chronic obstructive lung disease. He states he was previously being followed by for his cardiac problems. Allergies: Coded Allergies: NO KNOWN ALLERGIES (Unverified , 04/18/24) Home Meds Reported Medications Tamsulosin Hcl (Tamsulosin Hcl) 0.4 Mg Cap, 2 CAP PO DAILY for 30 Days, #60 04/19/24 Furosemide (Furosemide) 20 Mg Tab, 1 TAB PO DAILY for 30 Days, #30 04/19/24 Metoprolol Tartrate (Lopressor) 25 Mg Tb, 0.5 TAB PO DAILY for 30 Days, #15 0 Refills 04/19/24 Current Medications Current Medications Medications (Trade) Dose Ordered Sig/Shashank Route PRN Reason Start Time Stop Time Status Last Admin Sodium Chloride 1,000 ml @ 120 mls/hr Q8H20M IV 04/18/24 17:00 Acetaminophen/ Hydrocodone Bitart ([place] 5/325MG Tab) 1 tab Q4HP PRN PO MODERATE PAIN (4-6 PAIN SCALE) 04/18/24 17:00 04/19/24 05:11 Ondansetron HCl (Zofran) 4 mg Q4HP PRN IV NAUSEA / VOMITING 04/18/24 17:00 Acetaminophen (Tylenol Tablet) 650 mg Q6HP PRN PO PAIN SCALE 1-3 OR TEMP>100.4 04/18/24 17:00 Morphine Sulfate 2 mg Q4HPRN PRN IV SEVERE PAIN (7-10 PAIN SCALE) 04/18/24 17:00 Nitroglycerin (Ntrostat Sublingual) 0.4 mg Q5MINP PRN SL FOR CHEST PAIN 04/18/24 17:00 Morphine Sulfate 2 mg Q30M PRN IV FOR CHEST PAIN 04/18/24 17:00 Vancomycin HCl 0 ml @ 0 mls/hr UD IV 04/18/24 17:00 Piperacillin Sod/ Tazobactam Sod 100 ml @ 25 mls/hr Q8H IV 04/18/24 18:00 04/19/24 01:30 Heparin Sodium/ Dextrose 250 ml @ 10 mls/hr Q24H IV 04/19/24 02:00 04/19/24 08:36 DC 04/19/24 02:03 Ipratropium Ariton (Atrovent Medneb) 0.5 mg Q6HR NEB 04/19/24 00:00 04/19/24 06:28 Albuterol (Ventolin Medneb) 2.5 mg Q4HPRN PRN NEB SHORTNESS OF BREATH 04/18/24 20:00 04/19/24 00:55 Heparin Sodium/ Dextrose 250 ml @ 13 mls/hr [id number] IV 04/19/24 08:45 04/19/24 08:55 Review of Systems General: No Fever, chills, night sweats or weight loss HEENT: No Sinus pain, headache, vision changes or sore throat Respiratory: No Cough, dyspnea, sputum production Cardiovascular: No Chest pain, palpitations or leg edema Gastrointestinal: No Nausea, vomiting, diarrhea, abdominal pain Genitourinary: No Dysuria, urinary frequency, hematuria, pelvic pain Skin: No Rashes, ulcers, abscesses, redness or swelling Musculoskeletal: Bilateral lower extremity swelling and pain. Neurologic: No Altered mental status, headaches or focal neurological deficits Psychiatric: No Anxiety, depression or confusion Vital Signs Vital Signs Date Time Temp Pulse Resp B/P (MAP) Pulse Ox O2 Delivery O2 Flow Rate FiO2 04/19/24 08:00 86 28 94 Nasal Cannula* 3 32 04/19/24 08:00 98.2 105/65 (78) 98.2 Physical Exam General: Patient is lying in bed. Vital signs are noted. He appears unkept but responds to questions. HEENT: Examination reveals an atraumatic and normocephalic skull. Pupils were equally reactive orally poorly hydrated. Trachea central neck is supple. No ju gular distention no bruits. Cardiovascular: Heart exam reveals an irregular S1-S2. Frequent heart sounds notable secondary to PVCs. 1/6 systolic ejection murmur. Abdomen: Abdominal examination is unremarkable. Bowel sounds are normoactive. Extremities: Show adequate pulses at the femorals. Popliteals are present. Dorsalis pedis and pedal are not palpable. Notable edema and [id number] cellulitis in his distal tibial and ankles bilaterally. Neurologically he appears to be nonfocal. Labs/Diagnostic Data Labs Test 04/19/24 05:20 04/18/24 22:35 04/18/24 19:46 04/18/24 18:00 Range/Units White Blood Count 10.7 4.4-10.8 10^3/uL Red Blood Count 3.36 L 4.5-5.90 10^6/uL Hemoglobin 10.5 L 13.5-17.5 g/dL Hematocrit 31.0 L 41.0-53.0 % Mean Corpuscular Volume 92.5 80.0-100.0 fL Mean Corpuscular Hemoglobin 31.3 28.0-32.0 pg Mean Corpuscular Hemoglobin Concent 33.8 32.0-36.0 g/dL Red Cell Distribution Width 17.0 H 11.8-14.3 % Platelet Count 259 140-450 10^3/uL Mean Platelet Volume 7.1 6.9-10.8 fL Neutrophils (%) (Auto) 90.0 H 37.0-80.0 % Lymphocytes (%) (Auto) 5.0 L 10.0-50.0 % Monocytes (%) (Auto) 4.6 0.0-12.0 % Eosinophils (%) (Auto) 0.2 0.0-7.0 % Basophils (%) (Auto) 0.2 0.0-2.0 % Neutrophils # (Auto) 9.6 H 1.6-8.6 10 ^3/uL Lymphocytes # (Auto) 0.5 0.4-5.4 10 ^3/uL Monocytes # (Auto) 0.5 0-1.3 10 ^3/uL Eosinophils # (Auto) 0 0-0.8 10 ^3/uL Basophils # (Auto) 0 0-0.2 10 ^3/uL Nucleated Red Blood Cells 0.0 % Prothrombin Time 11.8 9.3-11.8 sec Prothrombin Time INR 1.13 0.9-1.15 Activated Partial Thromboplast Time 34.7 H 24.5-34.5 SEC Sodium Level 134 L 136-145 mmol/L Potassium Level 4.2 3.5-5.1 mmol/L Chloride Level 105 98-107 mmol/L Carbon Dioxide Level 26 20-31 mmol/L Anion Gap 3 L 5-15 Blood Urea Nitrogen 23 9-23 mg/dL Creatinine 1.02 0.700-1.30 mg/dL Glomerular Filtration Rate Calc 80 >90 mL/min BUN/Creatinine Ratio 22.5 H 10.0-20.0 Serum Glucose 153 H 74-106 mg/dL Calcium Level 8.6 L 8.7-10.4 mg/dL Total Bilirubin 0.3 0.2-1.0 mg/dL Aspartate Amino Transferase (AST) 64 H 13-40 U/L Alanine Aminotransferase (ALT) 24 7-40 U/L Alkaline Phosphatase 106 46-116 U/L Total Protein 5.4 L 5.7-8.2 g/dL Albumin 3.0 L 3.2-4.8 g/dL Random Vancomycin Level 15.6 H 5-10 ug/mL Troponin I High Sensitivity 1030 *H </=54 ng/L D-Dimer, Quantitative 3.23 H 0.0-0.49 mg/L FEU Lactic Acid Level 1.0 0.4-2.0 mmol/L Urine Color Colorless Yellow Urine Clarity Ex.turbid Clear Urine pH 6.0 5.0-9.0 Urine Specific [place] 1.034 1.001-1.035 Urine Protein 1+ H Negative Urine Ketones Negative Negative Urine Blood 3+ H Negative /uL Urine Nitrite Negative Negative Urine Bilirubin Negative Negative Urine Urobilinogen Normal Negative mg/dL Urine Leukocyte Esterase 3+ Negative /uL Urine RBC 35 0 - 3 /hpf Urine WBC 2485 0 - 3 /hpf Urine WBC Clumps Present None Seen /hpf Urine Squamous Epithelial Cells None seen <5 /hpf Urine Bacteria None seen None Seen /hpf Urine Glucose Normal Normal mg/dL Test 04/18/24 16:20 04/18/24 14:54 Range/Units Influenza Type A Antigen Negative Negative Influenza Type B Antigen Negative Negative SARS-CoV-2 Antigen (Rapid) Negative NEGATIVE Hemoglobin A1c 5.7 <5.7 % A1C Magnesium Level 1.7 1.6-2.6 mg/dL B-Type Natriuretic Peptide 555.48 0-100 pg/mL Triglycerides Level 107 < 150 mg/dL Cholesterol Level 129 < 200 mg/dL LDL Cholesterol 65 < 100 mg/dL HDL Cholesterol 36 L 40-59 mg/dL Thyroid Stimulating Hormone (TSH) 0.46 L 0.55-4.78 uIU/mL Assessment Patient is a 69-year-old female presented to the hospital with: NSTEMI CHFE Cellulitis chronic venous stasis fluid overload Leucocytosis Recommendations: on Heparin gtt for NSTEMI Antibiotic status: Zosyn [Started on 04/18] Vancomycin [Started on 04/19] continue both for now, follow blood cx, will taper trend wbc US doppler arterial Vancomycin Trough on 04/19 is 15.6. 04/18, Blood culture showed no growth prognosis gaurded Thank you for consult. Plan discussed with: Patient, Other TERRANCE PETTY MD Apr 19, 2024 09:11
[2024-04-19] MEDS: VANCOMYCIN 1GM/250ML KIT 250 ML IV SCH (14:18)
[2024-04-19 15:30] LABS: INR 1.08 (0.9-1.15); Partial Thromboplastin Time 42.7 SEC (24.5-34.5); Prothrombin Time 11.4 sec (9.3-11.8)
[2024-04-19] MEDS: ALBUTEROL SULF 2.5 MG/0.5ML(0.5%) NEB SOLN NEB SCH (18:51)
[2024-04-19] MEDS: guaiFENesin-DM 100/10mg/5ml SYR PO PRN (21:29)
[2024-04-19 23:31] LABS: INR 1.07 (0.9-1.15); Partial Thromboplastin Time 33.4 SEC (24.5-34.5); Prothrombin Time 11.3 sec (9.3-11.8)
[2024-04-20] VITALS (16 sets, daily range): BP systolic 99–100; BP diastolic 57–65; PULSE 71–91; RESP 16–22; TEMP 97.6–97.8; O2SAT 94–99
[2024-04-20] MEDS: HEPARIN SODIUM (PORCINE) 5000 UNITS/ML 1ML VIAL IV ONE (00:17)
[2024-04-20] MEDS: HEPARIN DRIP/D5W 100UNITS/ML 250 ML IV SCH ×2 (00:20→14:11)
[2024-04-20] MEDS: VANCOMYCIN 1GM/250ML KIT 250 ML IV SCH (02:11)
[2024-04-20 05:57] LABS: INR 1.11 (0.9-1.15); Prothrombin Time 11.6 sec (9.3-11.8)
[2024-04-20 06:04] LABS: Partial Thromboplastin Time 78.8 SEC (24.5-34.5)
[2024-04-20 08:42] LABS: Basophils # (auto) 0 10 ^3/uL (0-0.2); Basophils % (auto) 0.2 % (0.0-2.0); Eosinophils # (auto) 0.1 10 ^3/uL (0-0.8); Eosinophils % (auto) 1.2 % (0.0-7.0); Hematocrit 31.5 % (41.0-53.0); Hemoglobin 10.3 g/dL (13.5-17.5); Lymphocytes # (auto) 0.6 10 ^3/uL (0.4-5.4); Lymphocytes % (auto) 7.5 % (10.0-50.0); Mean Corpuscular Hemoglobin 30.4 pg (28.0-32.0); Mean Corpuscular Hgb Conc. 32.8 g/dL (32.0-36.0); Mean Corpuscular Volume 92.8 fL (80.0-100.0); Monocytes # (auto) 0.5 10 ^3/uL (0-1.3); Monocytes % (auto) 5.7 % (0.0-12.0); Neutrophils % (auto) 85.4 % (37.0-80.0); Platelet Count (auto) 264 10^3/uL (140-450); Red Blood Cells 3.39 10^6/uL (4.5-5.90); Red Cell Distribution Width 17.2 % (11.8-14.3); White Blood Cell 8.3 10^3/uL (4.4-10.8)
--- NOTE | 2024-04-20 10:20 | DVHPN2 ---
Progress Note - Dictate Date Seen: Apr 20, 2024 Medical Necessity Reason Pt with a Central, PICC or Fol: No Subjective Patient is on Heparin drip. vital signs Vital Sign Date Time Temp Pulse Resp B/P (MAP) Pulse Ox O2 Delivery O2 Flow Rate FiO2 04/20/24 09:34 77 20 98 04/20/24 09:29 Nasal Cannula* 3 32 04/20/24 06:00 101/64 (76) 04/20/24 04:30 97.9 97.9 Total Intake and Output 04/19/24 04/19/24 04/20/24 15:00 23:00 07:00 Intake Total 837.25 ml 1163.00 ml 1322.6666 ml Output Total 950 ml 175 ml Balance 837.25 ml 213.00 ml 1147.6666 ml medications Current Medications Medications Dose Ordered Sig/Shashank Route Start Time Stop Time Status Last Admin Dose Admin Sodium Chloride 1,000 ml @ 120 mls/hr Q8H20M IV 04/18/24 17:00 04/20/24 02:11 120 MLS/HR Acetaminophen/ Hydrocodone Bitart 1 tab Q4HP PRN PO 04/18/24 17:00 04/20/24 08:55 1 TAB Ondansetron HCl 4 mg Q4HP PRN IV 04/18/24 17:00 Acetaminophen 650 mg Q6HP PRN PO 04/18/24 17:00 Morphine Sulfate 2 mg Q4HPRN PRN IV 04/18/24 17:00 Nitroglycerin 0.4 mg Q5MINP PRN SL 04/18/24 17:00 Morphine Sulfate 2 mg Q30M PRN IV 04/18/24 17:00 Vancomycin HCl 0 ml @ 0 mls/hr UD IV 04/18/24 17:00 Piperacillin Sod/ Tazobactam Sod 100 ml @ 25 mls/hr Q8H IV 04/18/24 18:00 04/20/24 02:11 25 MLS/HR Albuterol 2.5 mg Q4HWA NEB 04/19/24 18:00 04/20/24 09:29 2.5 MG Ipratropium [place] 0.5 mg Q4HWA NEB 04/19/24 18:00 04/20/24 09:29 0.5 MG Vancomycin HCl 250 ml @ 250 mls/hr Q12H IV 04/20/24 02:00 04/20/24 02:11 250 MLS/HR Guaifenesin/ Dextromethorphan 10 ml Q4HP PRN PO 04/19/24 21:30 04/20/24 04:33 10 ML Heparin Sodium/ Dextrose 250 ml @ 18 mls/hr [id number] IV 04/20/24 00:15 04/20/24 00:20 18 MLS/HR objective General: Patient is lying in bed. Vital signs are noted. He appears unkept but responds to questions. HEENT: Examination reveals an atraumatic and normocephalic skull. Pupils were equally reactive orally poorly hydrated. Trachea central neck is supple. No jugular distention no bruits. Cardiovascular: Heart exam reveals an irregular S1-S2. Frequent heart sounds notable secondary to PVCs. 1/6 systolic ejection murmur. Abdomen: Abdominal examination is unremarkable. Bowel sounds are normoactive. Extremities: Show adequate pulses at the femorals. Popliteals are present. Dorsalis pedis and pedal are not palpable. Notable edema and [id number] cellulitis in his distal tibial and ankles bilaterally. There appears to be more cellulitis on the right. Neurologically he appears to be nonfocal. Integumentary as noted above with cellulitis in his distal extremities. laboratory and microbiology Laboratory Tests 04/20/24 04:45 04/19/24 05:20 Test 04/19/24 05:20 Range/Units Serum Glucose 153 H 74-106 mg/dL Assessment/Plan Patient is a 69-year-old female presented to the hospital with: NSTEMI CHFE Cellulitis chronic venous stasis fluid overload Leucocytosis Recommendations: on Heparin gtt for NSTEMI dc Zosyn [Started on 04/18] and Vancomycin [Started on 04/19] switch to IV cefazolin trend wbc; trending down taper to oral KEflex for 5-7 days when ready for discharge US doppler arterial: no significant blockage US venous: no DVT OUTPATIENT may benefit with compression stockings Vancomycin Trough on 04/19 is 15.6. 04/18, Blood culture showed no growth 04/19, Urine culture showed >100,000 CFU/mL Gram Positive Jami Thank you for consult. Plan discussed with: TERRANCE Moreno MD Apr 20, 2024 10:20
[2024-04-20 12:35] LABS: INR 1.13 (0.9-1.15); Prothrombin Time 11.8 sec (9.3-11.8)
[2024-04-20] MEDS: MORPHINE SULFATE INJ 2 MG/ml SYRG IV PRN (13:50)
[2024-04-20] MEDS: ONDANSETRON HCL 4 MG/2 ML VIAL IV PRN (13:51)
--- NOTE | 2024-04-20 15:04 | DVHPN2 ---
Subjective Overnight events noted. Patient on heparin drip. 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 Current Medications Medications Dose Ordered Sig/Shashank Route Start Time Stop Time Status Last Admin Dose Admin Sodium Chloride 1,000 ml @ 120 mls/hr Q8H20M IV 04/18/24 17:00 04/20/24 14:20 120 MLS/HR Acetaminophen/ Hydrocodone Bitart 1 tab Q4HP PRN PO 04/18/24 17:00 04/20/24 08:55 1 TAB Ondansetron HCl 4 mg Q4HP PRN IV 04/18/24 17:00 04/20/24 13:51 4 MG Acetaminophen 650 mg Q6HP PRN PO 04/18/24 17:00 Morphine Sulfate 2 mg Q4HPRN PRN IV 04/18/24 17:00 04/20/24 13:50 2 MG Nitroglycerin 0.4 mg Q5MINP PRN SL 04/18/24 17:00 Morphine Sulfate 2 mg Q30M PRN IV 04/18/24 17:00 Vancomycin HCl 0 ml @ 0 mls/hr UD IV 04/18/24 17:00 Piperacillin Sod/ Tazobactam Sod 100 ml @ 25 mls/hr Q8H IV 04/18/24 18:00 04/20/24 10:24 25 MLS/HR Albuterol 2.5 mg Q4HWA NEB 04/19/24 18:00 04/20/24 13:42 2.5 MG Ipratropium [place] 0.5 mg Q4HWA NEB 04/19/24 18:00 04/20/24 13:42 0.5 MG Vancomycin HCl 250 ml @ 250 mls/hr Q12H IV 04/20/24 02:00 04/20/24 14:23 250 MLS/HR Guaifenesin/ Dextromethorphan 10 ml Q4HP PRN PO 04/19/24 21:30 04/20/24 04:33 10 ML Heparin Sodium/ Dextrose 250 ml @ 16 mls/hr [id number] IV 04/20/24 14:15 04/20/24 14:11 16 MLS/HR Laboratory Results Laboratory Tests 04/19/24 05:20 04/20/24 04:45 Coagulation Test 04/19/24 15:04 04/19/24 23:03 04/20/24 04:45 04/20/24 12:00 Prothrombin Time 11.4 sec (9.3-11.8) 11.3 sec (9.3-11.8) 11.6 sec (9.3-11.8) 11.8 sec (9.3-11.8) Prothrombin Time INR 1.08 (0.9-1.15) 1.07 (0.9-1.15) 1.11 (0.9-1.15) 1.13 (0.9-1.15) Activated Partial Thromboplast Time 42.7 SEC (24.5-34.5) H 33.4 SEC (24.5-34.5) 78.8 SEC (24.5-34.5) *H 57.0 SEC (24.5-34.5) H Urinalysis Test 04/18/24 18:00 Urine Color Colorless (Yellow) Urine Clarity Ex.turbid (Clear) Urine pH 6.0 (5.0-9.0) Urine Specific [place] 1.034 (1.001-1.035) Urine Protein 1+ (Negative) H Urine Ketones Negative (Negative) Urine Blood 3+ /uL (Negative) H Urine Nitrite Negative (Negative) Urine Bilirubin Negative (Negative) Urine Urobilinogen Normal mg/dL (Negative) Urine Leukocyte Esterase 3+ /uL (Negative) Urine RBC 35 /hpf (0 - 3) Urine WBC 2485 /hpf (0 - 3) Urine WBC Clumps Present /hpf (None Seen) Urine Squamous Epithelial Cells None seen /hpf (<5) Urine Bacteria None seen /hpf (None Seen) Urine Glucose Normal mg/dL (Normal) Microbiology Microbiology Date/Time Source Procedure Growth Status 04/18/24 18:00 Voided Urine Urine Culture - Preliminary Resulted 04/18/24 17:45 Blood Blood Culture - Preliminary NO GROWTH AFTER 24 HOURS OF INCUBATION. Resulted Assessment/Plan Assessment/Plan 69-year-old male with a known history of COPD with previous history of tobacco use disorder presented to the hospital with shortness breath found to have 1. Acute hypoxic respiratory failure 2. Acute COPD exacerbation 3. Sepsis with suspected secondary to bilateral lower extremity cellulitis 4. NSTEMI rule out acute [place]/NSTEMI type 2 5. Bilateral lower extremity cellulitis -continue broad-spectrum IV antibiotics , follow up blood cultures -continue heparin drip per pharmacy. Infectious Disease consultation Plan discussed with: Patient My Orders Orders - JAM VELAZQUEZ MD Procedure Category Date Status Time Vancomycin 1gm/250ml PHA 04/20/24 In Process Kit 02:00 Vancomycin,Trough LAB 04/21/24 Verified 13:00 Complete Blood Count LAB 04/21/24 Verified 04:00 Vancomycin Per COREY 04/21/24 In Process Pharmacy Protoc 13:00 Creatinine LAB 04/21/24 Verified 04:00 Transfer Orders XFER 04/20/24 Transmitted 13:28 2 Gm Sodium Diet DIET 04/20/24 Transmitted Lunch Heparin Drip/D5w PHA 04/20/24 In Process 100units/Ml 14:15 PTPTT LAB 04/20/24 Logged 18:00 Date of Service: Apr 19, 2024 Billing Provider: JAM VELAZQUEZ MD Common Visit Codes: NOT BILLABLE JAM VELAZQUEZ MD Apr 20, 2024 15:04
--- NOTE | 2024-04-20 15:05 | DVHPN2 ---
Subjective Overnight events noted. Patient on heparin drip. 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 Medications Current Medications Medications Dose Ordered Sig/Shashank Route Start Time Stop Time Status Last Admin Dose Admin Sodium Chloride 1,000 ml @ 120 mls/hr Q8H20M IV 04/18/24 17:00 04/20/24 14:20 120 MLS/HR Acetaminophen/ Hydrocodone Bitart 1 tab Q4HP PRN PO 04/18/24 17:00 04/20/24 08:55 1 TAB Ondansetron HCl 4 mg Q4HP PRN IV 04/18/24 17:00 04/20/24 13:51 4 MG Acetaminophen 650 mg Q6HP PRN PO 04/18/24 17:00 Morphine Sulfate 2 mg Q4HPRN PRN IV 04/18/24 17:00 04/20/24 13:50 2 MG Nitroglycerin 0.4 mg Q5MINP PRN SL 04/18/24 17:00 Morphine Sulfate 2 mg Q30M PRN IV 04/18/24 17:00 Vancomycin HCl 0 ml @ 0 mls/hr UD IV 04/18/24 17:00 Piperacillin Sod/ Tazobactam Sod 100 ml @ 25 mls/hr Q8H IV 04/18/24 18:00 04/20/24 10:24 25 MLS/HR Albuterol 2.5 mg Q4HWA NEB 04/19/24 18:00 04/20/24 13:42 2.5 MG Ipratropium [place] 0.5 mg Q4HWA NEB 04/19/24 18:00 04/20/24 13:42 0.5 MG Vancomycin HCl 250 ml @ 250 mls/hr Q12H IV 04/20/24 02:00 04/20/24 14:23 250 MLS/HR Guaifenesin/ Dextromethorphan 10 ml Q4HP PRN PO 04/19/24 21:30 04/20/24 04:33 10 ML Heparin Sodium/ Dextrose 250 ml @ 16 mls/hr [id number] IV 04/20/24 14:15 04/20/24 14:11 16 MLS/HR Laboratory Results Laboratory Tests 04/19/24 05:20 04/20/24 04:45 Coagulation Test 04/19/24 23:03 04/20/24 04:45 04/20/24 12:00 Prothrombin Time 11.3 sec (9.3-11.8) 11.6 sec (9.3-11.8) 11.8 sec (9.3-11.8) Prothrombin Time INR 1.07 (0.9-1.15) 1.11 (0.9-1.15) 1.13 (0.9-1.15) Activated Partial Thromboplast Time 33.4 SEC (24.5-34.5) 78.8 SEC (24.5-34.5) *H 57.0 SEC (24.5-34.5) H Urinalysis Test 04/18/24 18:00 Urine Color Colorless (Yellow) Urine Clarity Ex.turbid (Clear) Urine pH 6.0 (5.0-9.0) Urine Specific [place] 1.034 (1.001-1.035) Urine Protein 1+ (Negative) H Urine Ketones Negative (Negative) Urine Blood 3+ /uL (Negative) H Urine Nitrite Negative (Negative) Urine Bilirubin Negative (Negative) Urine Urobilinogen Normal mg/dL (Negative) Urine Leukocyte Esterase 3+ /uL (Negative) Urine RBC 35 /hpf (0 - 3) Urine WBC 2485 /hpf (0 - 3) Urine WBC Clumps Present /hpf (None Seen) Urine Squamous Epithelial Cells None seen /hpf (<5) Urine Bacteria None seen /hpf (None Seen) Urine Glucose Normal mg/dL (Normal) Microbiology Microbiology Date/Time Source Procedure Growth Status 04/18/24 18:00 Voided Urine Urine Culture - Preliminary Resulted 04/18/24 17:45 Blood Blood Culture - Preliminary NO GROWTH AFTER 24 HOURS OF INCUBATION. Resulted Assessment/Plan Assessment/Plan 69-year-old male with a known history of COPD with previous history of tobacco use disorder presented to the hospital with shortness breath found to have 1. Acute hypoxic respiratory failure 2. Acute COPD exacerbation 3. Sepsis with suspected secondary to bilateral lower extremity cellulitis 4. NSTEMI rule out acute [place]/NSTEMI type 2 5. Bilateral lower extremity cellulitis -continue broad-spectrum IV antibiotics , follow up blood cultures -discontinue heparin drip per pharmacy. Start aspirin and statin, follow up Cardiology, Infectious Disease consultation Plan discussed with: Patient My Orders Orders - JAM VELAZQUEZ MD Procedure Category Date Status Time Vancomycin 1gm/250ml PHA 04/20/24 In Process Kit 02:00 Vancomycin,Trough LAB 04/21/24 Verified 13:00 Complete Blood Count LAB 04/21/24 Verified 04:00 Vancomycin Per COREY 04/21/24 In Process Pharmacy Protoc 13:00 Creatinine LAB 04/21/24 Verified 04:00 Transfer Orders XFER 04/20/24 Transmitted 13:28 2 Gm Sodium Diet DIET 04/20/24 Transmitted Lunch Heparin Drip/D5w PHA 04/20/24 In Process 100units/Ml 14:15 PTPTT LAB 04/20/24 Logged 18:00 Date of Service: Apr 20, 2024 Billing Provider: JAM VELAZQUEZ MD Common Visit Codes: NOT BILLABLE JAM VELAZQUEZ MD Apr 20, 2024 15:05
[2024-04-20 18:27] LABS: INR 1.11 (0.9-1.15); Prothrombin Time 11.6 sec (9.3-11.8)
[2024-04-20] MEDS: ATORVASTATIN 20 MG TAB PO SCH (21:56)
[2024-04-20] MEDS: ceFAZolin 2 GM/D5W50ml 50 ML IV SCH (21:56)
[2024-04-21] VITALS (18 sets, daily range): BP systolic 98–124; BP diastolic 54–70; PULSE 71–98; RESP 17–22; TEMP 97.6–98; O2SAT 93–100
[2024-04-21] MEDS: ACETAMINOPHEN 325 MG TAB PO PRN (07:09)
[2024-04-21 07:46] LABS: Basophils # (auto) 0 10 ^3/uL (0-0.2); Basophils % (auto) 0.2 % (0.0-2.0); Eosinophils # (auto) 0.2 10 ^3/uL (0-0.8); Eosinophils % (auto) 2.3 % (0.0-7.0); Hemoglobin 10.6 g/dL (13.5-17.5); Lymphocytes # (auto) 0.6 10 ^3/uL (0.4-5.4); Lymphocytes % (auto) 7.1 % (10.0-50.0); Mean Corpuscular Hgb Conc. 33.2 g/dL (32.0-36.0); Mean Corpuscular Volume 93.5 fL (80.0-100.0); Monocytes # (auto) 0.5 10 ^3/uL (0-1.3); Monocytes % (auto) 6.3 % (0.0-12.0); Neutrophils # (auto) 6.6 10 ^3/uL (1.6-8.6); Neutrophils % (auto) 84.1 % (37.0-80.0); Nucleated Red Blood Cells % 0.1 %; Platelet Count (auto) 324 10^3/uL (140-450); Red Blood Cells 3.42 10^6/uL (4.5-5.90); Red Cell Distribution Width 16.9 % (11.8-14.3); White Blood Cell 7.8 10^3/uL (4.4-10.8)
[2024-04-21] MEDS: ASPirin 81 mg TAB PO SCH (10:31)
[2024-04-21] MEDS ORDERED: ATOR20TA50 PO (14:11)
[2024-04-21] MEDS ORDERED: ASPI-325 PO (14:11)
[2024-04-21] MEDS ORDERED: CEPH500C PO (14:11)
--- NOTE | 2024-04-21 14:58 | DVHDS2 ---
Discharge Summary Date of Admission Apr 18, 2024 at 16:52 Date of Discharge: Apr 21, 2024 Labs/Diagnostic Data: Laboratory Results Test 04/21/24 12:58 04/21/24 06:35 04/20/24 18:01 04/19/24 05:20 Vancomycin Level Trough 8.4 ug/mL (5-10) White Blood Count 7.8 10^3/uL (4.4-10.8) Red Blood Count 3.42 10^6/uL (4.5-5.90) Hemoglobin 10.6 g/dL (13.5-17.5) Hematocrit 32.0 % (41.0-53.0) Mean Corpuscular Volume 93.5 fL (80.0-100.0) Mean Corpuscular Hemoglobin 31.0 pg (28.0-32.0) Mean Corpuscular Hemoglobin Concent 33.2 g/dL (32.0-36.0) Red Cell Distribution Width 16.9 % (11.8-14.3) Platelet Count 324 10^3/uL (140-450) Mean Platelet Volume 7.1 fL (6.9-10.8) Neutrophils (%) (Auto) 84.1 % (37.0-80.0) Lymphocytes (%) (Auto) 7.1 % (10.0-50.0) Monocytes (%) (Auto) 6.3 % (0.0-12.0) Eosinophils (%) (Auto) 2.3 % (0.0-7.0) Basophils (%) (Auto) 0.2 % (0.0-2.0) Neutrophils # (Auto) 6.6 10 ^3/uL (1.6-8.6) Lymphocytes # (Auto) 0.6 10 ^3/uL (0.4-5.4) Monocytes # (Auto) 0.5 10 ^3/uL (0-1.3) Eosinophils # (Auto) 0.2 10 ^3/uL (0-0.8) Basophils # (Auto) 0 10 ^3/uL (0-0.2) Nucleated Red Blood Cells 0.1 % Creatinine 0.86 mg/dL (0.700-1.30) Glomerular Filtration Rate Calc 94 mL/min (>90) Prothrombin Time 11.6 sec (9.3-11.8) Prothrombin Time INR 1.11 (0.9-1.15) Activated Partial Thromboplast Time 31.0 SEC (24.5-34.5) Sodium Level 134 mmol/L (136-145) Potassium Level 4.2 mmol/L (3.5-5.1) Chloride Level 105 mmol/L (98-107) Carbon Dioxide Level 26 mmol/L (20-31) Anion Gap 3 (5-15) Blood Urea Nitrogen 23 mg/dL (9-23) BUN/Creatinine Ratio 22.5 (10.0-20.0) Serum Glucose 153 mg/dL (74-106) Calcium Level 8.6 mg/dL (8.7-10.4) Total Bilirubin 0.3 mg/dL (0.2-1.0) Aspartate Amino Transferase (AST) 64 U/L (13-40) Alanine Aminotransferase (ALT) 24 U/L (7-40) Alkaline Phosphatase 106 U/L (46-116) Total Protein 5.4 g/dL (5.7-8.2) Albumin 3.0 g/dL (3.2-4.8) Random Vancomycin Level 15.6 ug/mL (5-10) Test 04/18/24 22:35 04/18/24 19:46 04/18/24 18:00 04/18/24 16:20 Troponin I High Sensitivity 1030 ng/L (</=54) D-Dimer, Quantitative 3.23 mg/L FEU (0.0-0.49) Lactic Acid Level 1.0 mmol/L (0.4-2.0) Urine Color Colorless (Yellow) Urine Clarity Ex.turbid (Clear) Urine pH 6.0 (5.0-9.0) Urine Specific [place] 1.034 (1.001-1.035) Urine Protein 1+ (Negative) Urine Ketones Negative (Negative) Urine Blood 3+ /uL (Negative) Urine Nitrite Negative (Negative) Urine Bilirubin Negative (Negative) Urine Urobilinogen Normal mg/dL (Negative) Urine Leukocyte Esterase 3+ /uL (Negative) Urine RBC 35 /hpf (0 - 3) Urine WBC 2485 /hpf (0 - 3) Urine WBC Clumps Present /hpf (None Seen) Urine Squamous Epithelial Cells None seen /hpf (<5) Urine Bacteria None seen /hpf (None Seen) Urine Glucose Normal mg/dL (Normal) Influenza Type A Antigen Negative (Negative) Influenza Type B Antigen Negative (Negative) SARS-CoV-2 Antigen (Rapid) Negative (NEGATIVE) Test 04/18/24 14:54 Hemoglobin A1c 5.7 % A1C (<5.7) Magnesium Level 1.7 mg/dL (1.6-2.6) B-Type Natriuretic Peptide 555.48 pg/mL (0-100) Triglycerides Level 107 mg/dL (< 150) Cholesterol Level 129 mg/dL (< 200) LDL Cholesterol 65 mg/dL (< 100) HDL Cholesterol 36 mg/dL (40-59) Thyroid Stimulating Hormone (TSH) 0.46 uIU/mL (0.55-4.78) Other Laboratory Tests 04/21/24 06:35 04/19/24 05:20 Brief Hx & Hospital Course: 69-year-old male with a known history of COPD with previous history of tobacco use disorder presented to the hospital with shortness breath found to have acute hypoxic respiratory failure as an outpatient in her office secondary to COPD and underlying sepsis. Patient was found to have bilateral lower extremity cellulitis given IV antibiotics. Patient elevated troponin suspected can be demand ischemia. Cardiology and Infectious Disease agreed the patient to be discharged. Patient is being discharged on p.o. antibiotic under stable condition. Patient has prostate enlargement with urinary retention status post Grider catheter replacement outpatient follow up with the Urology. Condition at Discharge: Stable Final Diagnosis/Problems List 69-year-old male with a known history of COPD with previous history of tobacco use disorder presented to the hospital with shortness breath found to have 1. Acute hypoxic respiratory failure, currently on room air 2. Acute COPD exacerbation, resolved 3. Sepsis with suspected secondary to bilateral lower extremity cellulitis 4. NSTEMI type 2 5. Bilateral lower extremity cellulitis 6. BPH, status post indwelling Grider catheter, outpatient follow up with Urology Discharge Disposition: Home with [facility] Services [facility] Discharge Will this Physician continue t: No Discharge Instruct/Medications Diet: Cardiac 2g Na,low cholest Activity: No Restrictions, As Tolerated Follow Up/Referral: Follow up with the PCP in 1-2 weeks Follow up with Desiree Mendez in 1-2 weeks Follow up with the Urology Dr. Zac Morales in 1-2 weeks Medications: Keflex, aspirin, statin, resume tamsulosin and beta-arturo Discharge Statement: "Patient was advised to return to the ER or call 911 if any headaches, dizziness, shortness of breath, chest pain, abdominal pain, bleeding, fevers, or worsening of medical condition. Patient was counseled about treatment plan, medications, possible side effects, patientverbalized understanding. All questions were answered to the best of my ability. This discharge took greater then 30 minutes in planning, reviewing documentation, counseling the patient, and discussing with other team members." ASSESSMENT ASSESSMENT Assessment 69-year-old male with a known history of COPD with previous history of tobacco use disorder presented to the hospital with shortness breath found to have 1. Acute hypoxic respiratory failure, currently on room air 2. Acute COPD exacerbation, resolved 3. Sepsis with suspected secondary to bilateral lower extremity cellulitis 4. NSTEMI type 2 5. Bilateral lower extremity cellulitis 6. BPH, status post indwelling Grider catheter, outpatient follow up with Urology Date of Service: Apr 21, 2024 Billing Provider: JAM VELAZQUEZ MD Common Visit Codes: NOT BILLABLE JAM VELAZQUEZ MD Apr 21, 2024 14:58
--- NOTE | 2024-04-21 20:54 | DVHPN2 ---
Progress Note - Dictate Date Seen: Apr 21, 2024 Medical Necessity Reason Pt with a Central, PICC or Fol: No Subjective Patient is going to be discharged tomorrow. vital signs Vital Sign Date Time Temp Pulse Resp B/P (MAP) Pulse Ox O2 Delivery O2 Flow Rate FiO2 04/21/24 19:24 97.7 76 22 94 04/21/24 18:04 Nasal Cannula* 3 32 04/21/24 17:00 112/54 (73) Total Intake and Output 04/20/24 04/20/24 04/21/24 15:00 23:00 07:00 Intake Total 794.8334 ml 16 ml 1925 ml Output Total 150 ml Balance 794.8334 ml -134 ml 1925 ml medications Current Medications Medications Dose Ordered Sig/Shashank Route Start Time Stop Time Status Last Admin Dose Admin Sodium Chloride 1,000 ml @ 120 mls/hr Q8H20M IV 04/18/24 17:00 04/21/24 10:35 120 MLS/HR Acetaminophen/ Hydrocodone Bitart 1 tab Q4HP PRN PO 04/18/24 17:00 04/20/24 20:41 1 TAB Ondansetron HCl 4 mg Q4HP PRN IV 04/18/24 17:00 04/20/24 13:51 4 MG Acetaminophen 650 mg Q6HP PRN PO 04/18/24 17:00 04/21/24 07:09 650 MG Morphine Sulfate 2 mg Q4HPRN PRN IV 04/18/24 17:00 04/21/24 03:51 2 MG Nitroglycerin 0.4 mg Q5MINP PRN SL 04/18/24 17:00 Morphine Sulfate 2 mg Q30M PRN IV 04/18/24 17:00 Albuterol 2.5 mg Q4HWA NEB 04/19/24 18:00 04/21/24 18:07 2.5 MG Ipratropium [place] 0.5 mg Q4HWA NEB 04/19/24 18:00 04/21/24 18:07 0.5 MG Guaifenesin/ Dextromethorphan 10 ml Q4HP PRN PO 04/19/24 21:30 04/21/24 03:49 10 ML Aspirin 81 mg DAILY PO 04/21/24 10:00 04/21/24 10:31 81 MG Atorvastatin Calcium 40 mg HS PO 04/20/24 22:00 04/20/24 21:56 40 MG Cefazolin Sodium/ Dextrose 50 ml @ 50 mls/hr Q8HR IV 04/20/24 22:00 04/21/24 16:53 50 MLS/HR objective General: Patient is lying in bed. Vital signs are noted. He appears unkept but responds to questions. HEENT: Examination reveals an atraumatic and normocephalic skull. Pupils were equally reactive orally poorly hydrated. Trachea central neck is supple. No jugular distention no bruits. Cardiovascular: Heart exam reveals an irregular S1-S2. Frequent heart sounds notable secondary to PVCs. 1/6 systolic ejection murmur. Abdomen: Abdominal examination is unremarkable. Bowel sounds are normoactive. Extremities: Show adequate pulses at the femorals. Popliteals are present. Dorsalis pedis and pedal are not palpable. Notable edema and [id number] cellulitis in his distal tibial and ankles bilaterally. There appears to be more cellulitis on the right. Neurologically he appears to be nonfocal. Integumentary as noted above with cellulitis in his distal extremities. laboratory and microbiology Laboratory Tests 04/21/24 06:35 04/19/24 05:20 Test 04/19/24 05:20 Range/Units Serum Glucose 153 H 74-106 mg/dL Assessment/Plan Patient is a 69-year-old female presented to the hospital with: NSTEMI CHFE Cellulitis chronic venous stasis fluid overload Leucocytosis Recommendations: on Heparin gtt for NSTEMI dc Zosyn [Started on 04/18] and Vancomycin [Started on 04/19] switch to IV cefazolin trend wbc; trending down taper to oral KEflex for 5-7 days when ready for discharge US doppler arterial: no significant blockage US venous: no DVT OUTPATIENT may benefit with compression stockings Vancomycin Trough on 04/19 is 15.6. 04/18, Blood culture showed no growth 04/19, Urine culture showed >100,000 CFU/mL Gram Positive Jami Thank you for consult. TERRANCE PETTY MD Apr 21, 2024 20:54
[2024-04-22] VITALS (8 sets, daily range): BP systolic 113–121; BP diastolic 59–77; PULSE 68–85; RESP 17–22; TEMP 97.9–98.5; O2SAT 95–100
== END 2024-04-22 09:15 | disposition home health service (06) | DRG 871 ==
LOC: ER 06:22 → EDBD 06:22 → EDUNIT# 06:22 → OVERFLOW 16:52 → TELE 04-19 23:48 → TELE-WESTW 04-20 16:23
PROVIDERS: ADMIT Internal Medicine; ATTEND Internal Medicine
DX: A41.9 Sepsis, unspecified organism (principal); I21.A1 Myocardial infarction type 2; J96.01 Acute respiratory failure with hypoxia; N39.0 Urinary tract infection, site not specified; L03.115 Cellulitis of right lower limb; L03.116 Cellulitis of left lower limb; J44.1 Chronic obstructive pulmonary disease with (acute) exacerbation; M62.82 Rhabdomyolysis; Z20.822 Contact with and (suspected) exposure to COVID-19; E87.70 Fluid overload, unspecified; F15.10 Other stimulant abuse, uncomplicated; I87.8 Other specified disorders of veins; R29.6 Repeated falls; B95.2 Enterococcus as the cause of diseases classified elsewhere; B96.89 Other specified bacterial agents as the cause of diseases classified elsewhere; N40.1 Benign prostatic hyperplasia with lower urinary tract symptoms
CPT/HCPCS: 36415; 71045; 71275; 80053; 80061; 80202; 81001; 82565; 83036; 83605; 83735; 83880; 84443; 84484; 85025; 85379; 85610; 85730; 87040; 87086; 87088; 87186; 87426; 87804; 93005; 93306; 93925; 93970; 94640; 96365; 96368; 96372; 99291; G0378; J2405; J2543